=== PATIENT | female | born 1940 | race Caucasian/White ===

== ENCOUNTER 2023-10-07 05:54 | Emergency (ER) | payer MEDICARE ==
[~2023-10-07] VITALS: Ht 152.4 cm; Wt 55.9 kg
[2023-10-07 06:31] VITALS: TEMP 98.6
[2023-10-07 06:32] VITALS: BP 133/53; PULSE 88; RESP 16; O2SAT 95
== END 2023-10-07 08:14 | disposition left against medical advice (07) ==
LOC: ER 05:54
DX: M25.561 Pain in right knee (principal); Z53.21 Procedure and treatment not carried out due to patient leaving prior to being seen by health care provider